=== PATIENT | female | born 1960 | race Hispanic/Latino ===

== ENCOUNTER 2016-11-12 10:27 | Emergency (ER) | payer OTHER ==
--- NOTE | 2016-11-12 11:05 | Emergency Department Report ---
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 Patient states that she suddenly began nose bleeding early this morning around 4 AM and persisted for nearly 2 hours. Patient complaining of sensation of feeling a clot in the back of her throat. Mild leakage from right nostril. Slightly bloody. Patient speaking in full sentences no audible stridor or wheezing. Denies any headache no dizziness no nausea no vomiting no chest pain reported by the patient. Denies any trauma to her nose. Denies any fevers chills or cough. MD complaint: epistaxis Onset/Timin -: hour(s) Location: nose Consistency: intermittent Improves with: pressure, cold therapy Context-Epistaxis: other (xarelto) - Related Data Previous Rx's Medication Instructions Recorded Last Taken Type Oxymetazoline 0.05% [Afrin] 1 spray NS QDAY PRN #1 bottle 11/12/16 Unknown Rx Allergies Allergy/AdvReac Type Severity Reaction Status Date / Time No Known Allergies Allergy Unverified 07/18/13 17:03 ED Dental HPI - General Chief complaint: Nosebleed Stated complaint: NOSEBLEED Time Seen by Provider: 11/12/16 11:05 Source: patient Mode of arrival: Ambulatory Limitations: No Limitations - Related Data Previous Rx's Medication Instructions Recorded Last Taken Type Oxymetazoline 0.05% [Afrin] 1 spray NS QDAY PRN #1 bottle 11/12/16 Unknown Rx Allergies Allergy/AdvReac Type Severity Reaction Status Date / Time No Known Allergies Allergy Unverified 07/18/13 17:03 ED Review of Systems ROS: Stated complaint: NOSEBLEED Other details as noted in HPI Comment: history of DVTs on anticoagulants Constitutional: denies: chills, fever Eyes: denies: eye pain, eye discharge, vision change ENT: denies: ear pain, throat pain Respiratory: denies: cough, shortness of breath, wheezing Cardiovascular: denies: chest pain, palpitations Endocrine: no symptoms reported Gastrointestinal: denies: abdominal pain, nausea, diarrhea Genitourinary: denies: urgency, dysuria, discharge Musculoskeletal: denies: back pain, joint swelling, arthralgia Skin: denies: rash, lesions Neurological: denies: headache, weakness, paresthesias Psychiatric: denies: anxiety, depression Hematological/Lymphatic: denies: easy bleeding, easy bruising ED Past Medical Hx - Medications Home Medications: Home Medications Medication Instructions Recorded Confirmed Last Taken Type Oxymetazoline 0.05% [Afrin] 1 spray NS QDAY PRN #1 bottle 11/12/16 Unknown Rx ED Physical Exam - General Limitations: No Limitations General appearance: alert, in no apparent distress - Head Head exam: Present: atraumatic, normocephalic - Eye Eye exam: Present: normal appearance, PERRL, EOMI - ENT ENT exam: Present: mucous membranes moist, other (visible bleeding right nostril. Left nostril no visible hemorrhage or clots.) - Neck Neck exam: Present: normal inspection - Respiratory Respiratory exam: Present: normal lung sounds bilaterally. Absent: respiratory distress - Cardiovascular Cardiovascular Exam: Present: regular rate, normal rhythm. Absent: systolic murmur, diastolic murmur, rubs, gallop - GI/Abdominal GI/Abdominal exam: Present: soft, normal bowel sounds - Extremities Exam Extremities exam: Present: normal inspection - Back Exam Back exam: Present: normal inspection - Neurological Exam Neurological exam: Present: alert, oriented X3 - Psychiatric Psychiatric exam: Present: normal affect, normal mood - Skin Skin exam: Present: warm, dry, intact, normal color. Absent: rash ED Course Vital Signs 11/12/16 11/12/16 10:33 13:39 Temperature 98.4 F Pulse Rate 122 H 100 H Respiratory 18 18 Rate Blood Pressure 147/105 Blood Pressure 122/83 [Left] O2 Sat by Pulse 99 98 Oximetry ED Medical Decision Making - Lab Data Result diagrams: 11/12/16 11:36 11/12/16 11:36 - Medical Decision Making A/P: Epistaxis likely anterior and associated with anticoagulant use 1-nosebleed has spontaneously stopped. I applied a small amount of Afrin nasal spray to both nostrils to mitigate any further bleeding 2-patient remained hemodynamically stable. Slightly hypertensive but patient is taking her bistolic medication consistently and following up with her primary care doctor 3-I discussed case with Dr. Hernandez 4-patient's hemoglobin and hematocrit within normal limits 5-I advised patient on methods to mitigate nosebleeding and advised her not to put anything in her nose. As patient is not currently hemorrhaging at this time and has been observed for several hours without heavy bleeding no indication for packing her nose at this time, I discussed this with Dr. Hernandez 6-I advised patient to return if he she experiences persistent nosebleeding 7-i advised pt to f/u with her PMD for continued managment of her HTN and DMT2 , ent referral for epixastasis Critical care attestation.: If time is entered above; I have spent that time in minutes in the direct care of this critically ill patient, excluding procedure time. ED Disposition Clinical Impression: Acute anterior epistaxis Disposition: DISCHARGED TO HOME OR SELFCARE Is pt being admited?: No Does the pt Need Aspirin: No Condition: Stable Instructions: Epistaxis (ED) Prescriptions: Oxymetazoline 0.05% [Afrin] 1 spray NS QDAY PRN #1 bottle PRN Reason: Bleeding Referrals: [facility] [Provider Group] - 3-5 Days [facility] - 3-5 Days KATE DAVENPORT MD [Staff Physician] - 3-5 Days Forms: Accompanied Note Time of Disposition: 14:24
[2016-11-12] MEDS ORDERED: AFRIN NS ONE (11:19)
[2016-11-12] MEDS ORDERED: ZOFRAN ODT ONE (11:35)
[2016-11-12] MEDS ORDERED: ZOFRAN ODT PO ONE (11:38)
[2016-11-12 11:49] LABS: Basophils % (Auto) 0.4 % (0.0-1.8); Eosinophils % (Auto) 0.4 % (0.0-4.3); Hematocrit 41.5 % (30.3-42.9); Hemoglobin 13.8 gm/dl (10.1-14.3); Mean Corpuscular HGB Conc 33 % (30-34); Mean Corpuscular Hemoglobin 27 pg (28-32); Mean Corpuscular Volume 82 fl (79-97); Platelet Count 207 K/mm3 (140-440); Red Blood Count 5.06 M/mm3 (3.65-5.03); Red Cell Distribution Width 14.5 % (13.2-15.2); White Blood Count 8.8 K/mm3 (4.5-11.0)
[2016-11-12 11:59] LABS: INR 1.44 (0.87-1.13)
[2016-11-12 12:00] LABS: Partial Thromboplastin Time 32.8 Sec. (24.2-36.6)
[2016-11-12 12:14] LABS: Anion Gap 23 mmol/L; BUN/Creatinine Ratio 31.25; Blood Urea Nitrogen 25 mg/dL (7-17); Calcium 9.3 mg/dL (8.4-10.2); Carbon Dioxide 20 mmol/L (22-30); Chloride 95.5 mmol/L (98-107); Glucose 301 mg/dL (65-100); Potassium 4.8 mmol/L (3.6-5.0); Sodium 134 mmol/L (137-145)
[2016-11-12] MEDS ORDERED: GLUCOTROL PO ONE (13:30)
[2016-11-12 13:40] VITALS: BP 122/83
== END 2016-11-12 14:41 | disposition home or self-care (01) ==
LOC: ED 10:27
DX: R04.0 Epistaxis (principal); Z86.718 Personal history of other venous thrombosis and embolism; Z86.711 Personal history of pulmonary embolism
CPT/HCPCS: 36415; 80048; 82962; 85025; 85610; 85730; 86850; 86900; 86901; 99283; Q0162